=== PATIENT | male | born 1975 | race Caucasian/White ===

== ENCOUNTER 2019-06-09 14:12 | Emergency (ER) | payer MEDICAID ==
[~2019-06-09] VITALS: Ht 175.3 cm; Wt 82.0 kg
[2019-06-09] MEDS ORDERED: HYDROCODONE/ACETAMINOPHEN 5/325MG TABLET PO STA (15:18)
[2019-06-09] MEDS ORDERED: GABAPENTIN 300MG CAPSULE PO ONE (15:30)
[2019-06-09] MEDS ORDERED: SULFAMETHOXAZOLE/TRIMETHOPRIM 800/160MG TABLET PO ONE (16:45)
[2019-06-09] MEDS ORDERED: CEPHALEXIN 250MG CAPSULE PO ONE (16:45)
[2019-06-09 17:01] LABS: BASOPHILS % 0.6 % (0.0-2.0); EOSINOPHILS % 4.7 % (0.0-5.0); HEMATOCRIT. 37.5 % (42.0-52.0); HEMOGLOBIN. 12.7 g/dL (14.0-18.0); LYMPHOCYTES % 28.1 % (20.0-50.0); MEAN CORPUSCULAR HEMOGLOBIN 28.9 pg (28.0-32.0); MEAN CORPUSCULAR VOLUME 85.3 fL (80.0-94.0); MEAN PLATELET VOLUME 7.6 fl (7.4-10.4); MONOCYTES % 6.3 % (2.0-8.0); NEUTROPHILS % 60.3 % (40.0-76.0); PLATELET 249 x1000/uL (130-400); RED CELL DISTRIBUTION WIDTH 13.5 % (11.6-14.6)
[2019-06-09 17:06] LABS: CHLORIDE 108 mEq/L (98-107)
[2019-06-09 17:12] LABS: PROTHROMBIN TIME 10.3 sec (9.6-11.0)
[2019-06-09] MEDS ORDERED: IOHEXOL-350 100 ML BOTTLE ONE (19:52)
[2019-06-09 21:45] VITALS: BP 131/81
== END 2019-06-09 22:06 | disposition home or self-care (01) ==
LOC: ER 14:12
DX: R22.41 Localized swelling, mass and lump, right lower limb (principal); E11.9 Type 2 diabetes mellitus without complications; Z98.1 Arthrodesis status
CPT/HCPCS: 36415; 73706; 80053; 81025; 82962; 85025; 85610; 93971; 99284; Q9967; Z7610